=== PATIENT | male | born 1990 | race Hispanic/Latino ===

== ENCOUNTER 2020-02-18 | Emergency (ER) | payer OTHER | END 2020-02-18 12:05 | disposition home or self-care (01) | DRG 563 | PROC: 0RSKXZZ Reposition Left Shoulder Joint, External Approach (ICD-10-PCS; principal; 2020-02-18) | DX: S43.015A Anterior dislocation of left humerus, initial encounter (principal); X50.3XXA Overexertion from repetitive movements, initial encounter; Y93.89 Activity, other specified; Y92.89 Other specified places as the place of occurrence of the external cause; Y99.0 Civilian activity done for income or pay ==